=== PATIENT | female | born 1960 | race Caucasian/White ===

== ENCOUNTER 2017-01-20 20:12 | Inpatient (IN) | payer OTHER ==
[~2017-01-20] VITALS: Ht 160 cm; Wt 142.0 kg
--- NOTE | ~2017-01-20 | HC ---
[facility] [place] [address] CONSULTATION Name: TON DUONG Room #: 428-P [facility] IN M.R.#: [id number] Admission: 01/20/17 Attend Phys: Alex Springer MD Discharge: 01/24/17 Date of : 64 Report #: [id number] THIS REPORT FOR: //name// CC: [facility] physician/PCP Alex Springer DATE OF SERVICE: 01/21/2017 HISTORY OF PRESENT ILLNESS: I have been asked to evaluate this 56-year-old lady who presented to the emergency department with elevated glucose levels in the greater than 300 mg percent. The patient presented with some abdominal pain and GI abnormalities, but she also was found to have an abscess of the skin and subcutaneous tissues of the right axilla, which had initial incision and drainage with small 1 cm incision in the emergency department. This has become more troublesome, more tender and painful and has an inadequate drainage. This will require more adequate drainage procedure in the operating room. PAST MEDICAL HISTORY: Consistent with hypertension, depression and diabetes mellitus. PAST SURGICAL HISTORY: She denies. ALLERGIES: No known allergies. MEDICATIONS: Metformin, Levemir, insulin and Protonix. SOCIAL HISTORY: Denies alcohol, tobacco or drug use. Lives at home with her daughter. FAMILY HISTORY: Diabetes mellitus and cardiovascular disease. REVIEW OF SYSTEMS: Ten-point review of systems, she denies previous skin infections or subcutaneous abscesses. PHYSICAL EXAMINATION: GENERAL: Demonstrates an obese lady with some moderate distress regarding the right axillary abscess. VITAL SIGNS: She is afebrile. Vital signs are within normal limits. HEENT: Pupils are nonicteric. NECK: Supple. CARDIOVASCULAR: Regular rate and rhythm. RESPIRATORY: Clear to bases. ABDOMEN: Obese, tender in the epigastric region. THORAX: There is a hard, firm indurated area with erythema in the mid portion of the skin below the axilla. This is approximately 3-4 cm below the axilla. There is some purulent drainage coming from the small 1 cm incision. This will [facility] [address] [place] [address] CONSULTATION Name: TON DUONG Room #: 428-P [facility] IN M.R.#: [id number] Admission: 01/20/17 Attend Phys: Alex Springer MD Discharge: 01/24/17 Date of : 64 Report #: [id number] require additional drainage in the operating room. NEUROLOGIC: She is oriented times 3. LABORATORY DATA: Laboratory demonstrates white blood cell count 15,000, hemoglobin is 14. BUN and creatinine are within normal limits. DIAGNOSTIC IMPRESSION: 1. Right axillary abscess, requiring additional incision and drainage in the operating room. 2. Diabetes mellitus type 2. 3. Obesity. PLAN: Plan would be to proceed with incision and drainage in the OR with irrigation and packing today. Thank you for allowing us to participate in her care. By: 1115 [id number] Uche Capps MD, STANISLAW /nt
--- NOTE | ~2017-01-20 | P ---
[facility] [place] [address] PROCEDURE REPORT Name: TON DUONG Room #: 428-P ADM IN M.R.#: [id number] Admission: 01/20/17 Attend Phys: Alex Springer MD Discharge: Date of : 64 Report #: [id number] THIS REPORT FOR: //name// CC: [facility] physician/PCP Anderson Machado MD [facility] INPATIENT UPPER ENDOSCOPY NOTE BRIEF HISTORY: The patient is a 56-year-old woman with recurrent abdominal pain, which is more severe. PREOPERATIVE DIAGNOSES: Worsening abdominal pain along with diabetes as well as nausea and vomiting. POSTOPERATIVE DIAGNOSES: 1. Moderate bulbar duodenitis. 2. Moderate erosive antral gastritis. 3. Grade B erosive esophagitis. MEDICATIONS: Deep sedation with propofol per anesthesia. SPECIMEN: None. ESTIMATED BLOOD LOSS: None. PROCEDURE: EGD. FINDINGS: Prior to propofol sedation, procedure of upper endoscopy discussed with the patient as well as potential risks, benefits, and complications. She indicates she understands and desires to proceed. This was discussed with the patient's daughter translating. DESCRIPTION OF PROCEDURE: With the patient in left lateral decubitus position, the [employer] video endoscope was inserted in the cervical esophagus under direct vision without difficulty. Examination of this organ through its entire length revealed normal esophageal mucosa down to the squamocolumnar junction. At the squamocolumnar junction, there was a 5-8 mm erosion consistent with grade B erosive esophagitis, De Leon's mucosa was not seen. Hiatus hernia was not seen. The scope was advanced into the stomach, which was examined on end view as well as retroflexed views. She does have moderately severe erosive gastritis in the antrum, but there is no evidence of bleeding. There were no retained solids or liquids in the stomach in this patient with diabetes to suggest gastroparesis or outlet obstruction. Upon retroflexion, no abnormalities were noted. The pylorus was unremarkable, duodenal bulb was inspected, and there was noted to be a moderate duodenitis, but no evidence of active bleeding. At that point, the scope was slowly withdrawn, and careful circumferential views were confirmed, [facility] [address] [place] [address] PROCEDURE REPORT Name: TON DUONG Room #: 428-P [facility] IN ..#: [id number] Admission: 01/20/17 Attend Phys: Alex Springer MD Discharge: Date of : 64 Report #: [id number] and the patient tolerated the procedure well. Please note that several months ago she had an upper endoscopy, and biopsies for H. pylori were negative. Biopsies for celiac disease were also negative. She was having diarrhea at that time. DISPOSITION: The patient with worsening abdominal pain. She has been on twice daily pantoprazole. She does use ibuprofen, but reports that she does not take it every day. She had significant erosive changes in the antrum of stomach. She has been on pantoprazole, so I will add sucralfate 1 g 4 times daily. In view of her diabetes and vomiting, we will obtain a gastric emptying study. It is possible the esophagitis may be related to vomiting. However, reflux is a possibility as well. If overall symptoms do not improve, also consider PIPIDA scan of the gallbladder as well. <ELECTRONICALLY SIGNED> By: Anderson Machado MD 01/24/17 1538 [id number] [id number] Anderson Machado MD /nt
--- NOTE | ~2017-01-20 | HC ---
[facility] [place] [address] CONSULTATION Name: TON DUONG Room #: 428-P ADM IN M.R.#: [id number] Admission: 01/20/17 Attend Phys: Alex Springer MD Discharge: Date of : 64 Report #: [id number] THIS REPORT FOR: //name// CC: [facility] physician/PCP Charles Kennedy REASON FOR CONSULTATION: The patient is a 56-year-old woman with severe epigastric pain. HISTORY OF PRESENT ILLNESS: The patient has a known history of diabetes. She has had previous GI evaluation including upper endoscopy, biopsies negative for H. pylori and for celiac disease. Also, in last August, she had an ultrasound of the abdomen, which had not revealed evidence of gallbladder disease. She had a noncontrast CT earlier this year, which was nondiagnostic. She reports after last admission the pain resolved; however, in the past week or so, the pain has returned. It is constant, burning in the epigastrium. She does have some nausea and also has bouts of vomiting. She has not had hematemesis. She takes ibuprofen on occasion, but not on a daily basis. PAST MEDICAL HISTORY: Long history of diabetes. She has also had high blood pressure and depression. ALLERGIES: No known drug allergies. MEDICATIONS: Usual home medicines, pantoprazole 40 mg twice daily, which she has been using, developed the pain on pantoprazole, also metformin 500 b.i.d., Levemir insulin 20 units at bedtime and Humalog sliding scale. FAMILY HISTORY: No family history of colon cancer. SOCIAL HISTORY: Does not smoke or consume alcohol. REVIEW OF SYSTEMS: GENERAL: No change in weight, fever or chills. PULMONARY: No cough or pneumonia. CARDIOVASCULAR: No chest pain, chest tightness or palpitations. GASTROINTESTINAL: She has not had hematemesis. She has had diarrhea in the past, but not an issue at this time. PHYSICAL EXAMINATION: VITAL SIGNS: Blood pressure 104/63 and pulse of 81. GENERAL: The patient is a well-developed, well-nourished, morbidly obese woman, in no acute distress. HEENT: Anicteric. Pupils are equal and round. Oropharynx is clear. NECK: Supple. CHEST: Clear. [facility] [address] [place] [address] CONSULTATION Name: TON DUONG Room #: 428-P [facility] IN M.R.#: [id number] Admission: 01/20/17 Attend Phys: Alex Springer MD Discharge: Date of : 64 Report #: [id number] HEART: Regular rate and rhythm, normal S1, normal S2. ABDOMEN: Morbidly obese, normal bowel sounds, soft, with [id number] epigastric tenderness. No rebound or rigidity. She has a benign abdomen. RECTAL: Not done. EXTREMITIES: Without cyanosis, clubbing or edema. ASSESSMENT: 1. Recurrent abdominal pain. 2. Occasional use of nonsteroidals. 3. Diabetes. 4. Nausea and vomiting. 5. High blood pressure. 6. Depression. PLAN: 1. Upper endoscopy. 2. Consider gastric emptying study as well. 3. If workup is nondiagnostic, consider PIPIDA scan for further evaluation of her gallbladder. <ELECTRONICALLY SIGNED> By: Anderson Machado MD 01/24/17 1538 [id number] [id number] [place] Machado MD /nt
--- NOTE | ~2017-01-20 | H ---
[facility] [place] [address] HISTORY AND PHYSICAL Name: TON DUONG Room #: 428-P ADM IN M.R.#: [id number] Admission: 01/20/17 Attend Phys: Charles Kennedy MD Discharge: Date of : 64 Report #: [id number] THIS REPORT FOR: //name// CC: [facility] physician/PCP Charles Kennedy ATTENDING PHYSICIAN: Charles Kennedy M.D. PRIMARY CARE PHYSICIAN: . CHIEF COMPLAINT: Elevated blood sugars. HISTORY OF PRESENT ILLNESS: The patient is a 56-year-old female who is a diabetic. She has noticed that she normally run blood sugars in 200-300, she has noticed in the last few weeks despite taking her insulin that her blood sugars have been running higher today she was up to 559. She came into the ER complaining of headache and abdominal pain and bilateral lower extremity pain. This also started yesterday. She has been having this epigastric pain for some time. She says the pain is worse with her after eating. She has never had any formal GI evaluation including an EGD or gastric emptying study. She did had a fever at home up to 39, which is 2 days ago. She has seen her PCP within the last month and her Lantus dose was doubled, she was also complaining of a soreness under her right arm, which was found to be a small abscess that was I and D in the ER, she now continues to have some pain in that area, she did run out of her blood pressure medications about 4 months ago, but she has been taking all her diabetic meds. PAST MEDICAL HISTORY: Hypertension and depression. PAST SURGICAL HISTORY: None. ALLERGIES: None. HOME MEDICATIONS: Protonix 40 mg b.i.d., metformin 500 mg b.i.d., Levemir insulin 20 units at bedtime and Humalog insulin sliding scale. SOCIAL HISTORY: The patient denies any alcohol, tobacco or drug use. She lives at home with her daughter. FAMILY HISTORY: Significant for diabetes and heart disease. REVIEW OF SYSTEMS: Twelve point review of systems was reviewed with the patient, otherwise negative unless stated in the HPI. PHYSICAL EXAMINATION: GENERAL: The patient is an alert, obese female in no acute distress. VITAL SIGNS: Temperature is 36.9, heart rate 102, respirations 16, blood [address] [address] HISTORY AND PHYSICAL Name: TON DUONG Room #: 428-P [facility] IN M.R.#: [id number] Admission: 01/20/17 Attend Phys: Charles Kennedy MD Discharge: Date of : 64 Report #: [id number] pressure is 147/94, oxygen 96% on room air. HEENT: PERRLA. Sclerae is nonicteric. Oral mucosa is pink and moist. NECK: Supple, no JVD noted. CARDIOVASCULAR: Normal S1, S2. No murmurs, rubs or gallops. RESPIRATORY: Breath sounds are clear bilaterally. No wheezing or rhonchi. Breathing is nonlabored. ABDOMEN: Soft, obese and tender in epigastric area. Bowel sounds are positive. VASCULAR: She does have some generalized fluffiness but really no significant pitting edema. NEUROLOGIC: The patient is alert and oriented x 3. Speech is clear. She is moving all extremities equally. No focal neuro deficits noted. LABORATORY DATA: WBC is 15.4, hemoglobin 14.5, platelets 313. Sodium 127, potassium 4.6, BUN 9, creatinine 1.1 and glucose is 498, anion gap was 7 and lactate is 2.5. LFTs are within normal limits. Albumin is 2.8. UA showed glucose. ASSESSMENT AND PLAN: 1. Right axillary abscess. The patient did have I and D in the ER. We will continue with pain control and clindamycin and check MRSA nasal swab. 2. Diabetes type 2, this is uncontrolled, likely due to infection. We will check hemoglobin A1c and add sliding scale insulin, continue home insulin regimen. 3. Chronic epigastric pain and nausea. The patient really has not had any for formal GI evaluation for this she has been on Protonix b.i.d., which has not seem to help. We will continue with Protonix and have GI further evaluate. 4. Pseudohyponatremia. Sodium should improve as her potassium improved back to baseline or as back to normal range. 5. Mild sepsis. The patient did have some mild tachycardia upon arrival as well as leukocytosis, the source is likely her abscess. We will follow all cultures. Continue with clindamycin. 6. Morbid obesity. 7. Hypertension. The patient has not been on any treatment for blood pressure in the last 4 months because she ran out, but pressure remained stable at this time. Continue to monitor. 8. Deep venous thrombosis prophylaxis, place sequential compression devices. We will continue to follow the patient closely throughout the hospitalization and make changes based on clinical status. By: [id number] Patito Lopez, TRACY /nt
--- NOTE | ~2017-01-20 | O ---
[facility] [place] [address] OPERATIVE REPORT Name: TON DUONG Room #: 428-P [facility] IN M.R.#: [id number] Admission: 01/20/17 Attend Phys: Alex Springer MD Discharge: 01/24/17 Date of : 64 Report #: [id number] THIS REPORT FOR: //name// CC: [facility] physician/PCP Alex Springer DATE OF SERVICE: 01/21/2017 PREOPERATIVE DIAGNOSIS: Right axillary skin and subcutaneous abscess. POSTOPERATIVE DIAGNOSIS: Right axillary skin and subcutaneous abscess. PROCEDURE: Incision and drainage of right axillary skin and subcutaneous abscess. SURGEON: Uche Capps M.D. CHIEF BUSINESS OFFICER: Latha Ricks MS3. INDICATIONS: This 56-year-old obese diabetic female has an abscess of the right axillary region which is draining purulent drainage and had a small 1 cm incision performed in the Emergency Department, but this is continuing to have a smoldering deeper abscess which requires drainage in the operating room. OPERATIVE PROCEDURE: The patient had thorough discussion of procedure, benefits and risks. She understood the planned procedure. She gave permission. She was brought to the operating room suite and had satisfactory induction of laryngeal mask anesthesia. The patient was rolled to her left side in the bed. Arm was held forward over chest. After sterile paint with Betadine was performed, the 1 cm incision was enlarged in a transverse manner to approximately 3 cm to allow finger introduction. Cultures were obtained of the purulent drainage finger disruption of loculations and of the abscess cavity was performed. Copious irrigation with saline was then performed. The wound was then packed with iodoform gauze. The patient tolerated the procedure well. Estimated blood loss was less than 5 mL. She returned to recovery room in stable and satisfactory condition. By: [id number] Uche Capps MD, FACS /nt
[~2017-01-20 20:12] MED LIST: ASPIR 8181 MG PO; DONNATAL E16.2 MG/5 PO; GLIPIZIDE 10 MG10 MG PO; HUMALOG100 UNIT/1 SUBQ; IBUPROFEN 400400 M2 PO; LANTUSSOLASTAR SUBQ; LEVEMIR100 UNIT/1 SUBQ; METFORMIN HCL500 MG PO; NORCO 5-325 TA1 EACH PO; NOVOLOG100 UNIT/1 SUBQ; PEPCID40 MG PO; PROTONIX40 M1 PO; TRAMADOL 50 MG50 MG PO; ZOFRAN ODT4 MG PO; ZOFRAN ODT8 MG PO
[2017-01-20 20:14] VITALS: BP 147/94
[2017-01-20 21:23] LABS: ABSOLUTE NEUTROPHILS 9.7 thou/uL (1.4-8.2); BASOPHILS 0.8 % (0.0-2.0); EOSINOPHILS 2.1 % (0.0-3.0); HEMATOCRIT 43.8 % (37.0-47.0); HEMOGLOBIN 14.5 gm/dL (12.0-15.0); LYMPHOCYTES 26.1 % (24.0-44.0); MCH 27.7 pg (26.0-34.0); MCHC 33.1 g/dL (28.0-37.0); MCV 83.6 fL (80.0-100.0); MONOCYTES 7.9 % (1.0-8.0); PLATELET COUNT 313 thou/uL (150-400); POLYS 63.1 % (36.0-66.0); RBC 5.25 mil/uL (4.20-5.00); WBC 15.4 thou/uL (4.0-11.0)
[2017-01-20 21:24] LABS: MANUAL DIFF NO
[2017-01-20 21:30] LABS: URINE BILIRUBIN NEGATIVE (Negative); URINE BLOOD TRACE (Negative); URINE COLOR YELLOW; URINE GLUCOSE-RANDOM* 3+ (Negative); URINE KETONES NEGATIVE (Negative); URINE LEUKOCYTES-REFLEX NEGATIVE (Negative); URINE PROTEIN (DIPSTICK) NEGATIVE (Negative); URINE SPECIFIC GRAVITY <= 1.005 (1.003-1.035); URINE UROBILINOGEN 0.2 E.U./dl (0.2-1.0)
[2017-01-20 22:01] LABS: CALCIUM 8.8 mg/dL (8.5-10.1); CREATININE 1.1 mg/dL (0.6-1.0); POTASSIUM 4.6 mmol/L (3.5-5.1)
[2017-01-20 22:02] LABS: ALBUMIN 2.8 g/dL (3.4-5.0); DIRECT BILIRUBIN 0.1 mg/dL (<0.1-0.3); TOTAL BILIRUBIN 0.5 mg/dL (<0.1-1.0)
[2017-01-20 23:08] VITALS: BP 110/65
[2017-01-20 23:45] VITALS: BP 114/82
[2017-01-21 04:16] LABS: HEMATOCRIT 40.1 % (37.0-47.0); HEMOGLOBIN 13.1 gm/dL (12.0-15.0); MCH 27.3 pg (26.0-34.0); MCHC 32.6 g/dL (28.0-37.0); MCV 83.8 fL (80.0-100.0); RBC 4.78 mil/uL (4.20-5.00); RDW 13.7 % (10.5-14.5); WBC 12.9 thou/uL (4.0-11.0)
[2017-01-21 04:24] LABS: CALCIUM 8.4 mg/dL (8.5-10.1); CREATININE 1.2 mg/dL (0.6-1.0); POTASSIUM 4.3 mmol/L (3.5-5.1)
[2017-01-21 04:30] VITALS: BP 119/76
[2017-01-21 07:30] VITALS: BP 120/73
[2017-01-21 15:50] VITALS: BP 123/93
[2017-01-21 18:11] LABS: GLYCOHEMOGLOBIN (HGB A1C) 11.3 % (4.8-5.6)
[2017-01-21 20:23] VITALS: BP 118/73
[2017-01-22 03:57] VITALS: BP 102/60
[2017-01-22 04:32] LABS: CALCIUM 7.9 mg/dL (8.5-10.1); CREATININE 0.9 mg/dL (0.6-1.0); POTASSIUM 4.3 mmol/L (3.5-5.1)
[2017-01-22 05:46] LABS: HEMATOCRIT 38.5 % (37.0-47.0); HEMOGLOBIN 12.6 gm/dL (12.0-15.0); MCH 27.7 pg (26.0-34.0); MCHC 32.7 g/dL (28.0-37.0); MCV 84.7 fL (80.0-100.0); RBC 4.55 mil/uL (4.20-5.00); RDW 13.7 % (10.5-14.5); WBC 9.7 thou/uL (4.0-11.0)
[2017-01-22 07:20] VITALS: BP 129/86
[2017-01-22 15:54] VITALS: BP 128/85
[2017-01-22 19:26] VITALS: BP 102/67
[2017-01-23 04:35] VITALS: BP 114/74
[2017-01-23 04:47] LABS: HEMATOCRIT 38.1 % (37.0-47.0); HEMOGLOBIN 12.4 gm/dL (12.0-15.0); MCH 27.7 pg (26.0-34.0); MCHC 32.6 g/dL (28.0-37.0); MCV 85.1 fL (80.0-100.0); RBC 4.48 mil/uL (4.20-5.00); RDW 14.1 % (10.5-14.5); WBC 8.7 thou/uL (4.0-11.0)
[2017-01-23 04:54] LABS: CREATININE 0.9 mg/dL (0.6-1.0); POTASSIUM 4.2 mmol/L (3.5-5.1)
[2017-01-23 07:38] VITALS: BP 116/79
[2017-01-23 16:32] VITALS: BP 130/71
[2017-01-23 20:10] VITALS: BP 130/81
[2017-01-24 03:58] VITALS: BP 110/71
[2017-01-24 05:21] LABS: HEMATOCRIT 38.3 % (37.0-47.0); HEMOGLOBIN 12.4 gm/dL (12.0-15.0); MCH 27.4 pg (26.0-34.0); MCHC 32.5 g/dL (28.0-37.0); MCV 84.4 fL (80.0-100.0); RBC 4.54 mil/uL (4.20-5.00); RDW 13.9 % (10.5-14.5); WBC 9.1 thou/uL (4.0-11.0)
[2017-01-24 05:40] LABS: CALCIUM 8.5 mg/dL (8.5-10.1); CREATININE 0.9 mg/dL (0.6-1.0); POTASSIUM 4.4 mmol/L (3.5-5.1)
[2017-01-24 07:39] VITALS: BP 134/87
[2017-01-24] MEDS ORDERED: CLEOCIN HCL150 MG PO (11:55)
[2017-01-24] MEDS ORDERED: HYDROCODON-ACE1 EAC7 PO (11:56)
[2017-01-24] MEDS ORDERED: HUMALOG100 UNIT/1 SUBQ (11:59)
[2017-01-24] MEDS ORDERED: GLIPIZIDE 10 MG10 MG PO (12:00)
[2017-01-24 13:49] VITALS: BP 134/87
[2017-01-24 15:25] VITALS: BP 134/89
== END 2017-01-24 16:02 | disposition home or self-care (01) | DRG 872 ==
LOC: ER 20:12 → 4E 22:14 → EROBS 22:14 → 4E 23:09
PROVIDERS: Emergency Medicine; Hospitalist; Nurse Practitioner Acute Care; Surgery
PROC: 0X940ZZ Drainage of Right Axilla, Open Approach (ICD-10-PCS; principal; 2017-01-20)
PROC: 0DJ08ZZ Inspection of Upper Intestinal Tract, Via Natural or Artificial Opening Endoscopic (ICD-10-PCS; 2017-01-21)
PROC: 0X940ZZ Drainage of Right Axilla, Open Approach (ICD-10-PCS; 2017-01-21)
DX: A41.9 Sepsis, unspecified organism (principal); L02.411 Cutaneous abscess of right axilla; E87.1 Hypo-osmolality and hyponatremia; Z68.43 Body mass index [BMI] 50.0-59.9, adult; E66.01 Morbid (severe) obesity due to excess calories; E11.65 Type 2 diabetes mellitus with hyperglycemia; K21.0 Gastro-esophageal reflux disease with esophagitis; N93.9 Abnormal uterine and vaginal bleeding, unspecified; K29.70 Gastritis, unspecified, without bleeding; K29.80 Duodenitis without bleeding; I10 Essential (primary) hypertension; F32.9 Major depressive disorder, single episode, unspecified; Z79.4 Long term (current) use of insulin; Z79.899 Other long term (current) drug therapy; Z83.3 Family history of diabetes mellitus; Z82.49 Family history of ischemic heart disease and other diseases of the circulatory system
CPT/HCPCS: 10183; 50010; 50101; 50386; 50403; 62110; 62900; 70005